=== PATIENT | male | born 1980 | race Caucasian/White ===

== ENCOUNTER 2018-06-25 05:22 | Emergency (ER) | payer OTHER ==
[~2018-06-25] VITALS: Ht 175.3 cm; Wt 77.1 kg
[~2018-06-25 05:22] MED LIST: ERY-TAB250 MG PO; PRILOSEC20 MG PO; ULTRACET TABLET1 TAB PO; ZANTAC 150MG T150 MG PO; ZOFRAN ODT4 MG PO
[2018-06-25 05:43] LABS: BASOPHILS 0.4 % (0.0-2.0); EOSINOPHILS 1.3 % (0.0-3.0); HEMATOCRIT 49.6 % (42.0-52.0); HEMOGLOBIN 16.8 gm/dL (14.0-18.0); LYMPHOCYTES 24.4 % (24.0-44.0); MCHC 33.9 g/dL (28.0-37.0); MCV 88.2 fL (80.0-100.0); MONOCYTES 7.9 % (1.0-8.0); PLATELET COUNT 202 thou/uL (150-400); RBC 5.62 mil/uL (4.50-6.00); RDW 12.8 % (10.5-14.5); WBC 6.1 thou/uL (4.0-11.0)
[2018-06-25 05:48] LABS: CALCIUM 10.1 mg/dL (8.5-10.1); CREATININE 1.1 mg/dL (0.7-1.3); POTASSIUM 3.2 mmol/L (3.5-5.1)
[2018-06-25 05:54] LABS: ALBUMIN 4.6 g/dL (3.4-5.0); TOTAL PROTEIN 8.1 g/dL (6.4-8.2)
[2018-06-25 08:19] LABS: URINE BILIRUBIN NEGATIVE (Negative); URINE BLOOD NEGATIVE (Negative); URINE CLARITY CLEAR; URINE COLOR YELLOW; URINE GLUCOSE-RANDOM* NEGATIVE (Negative); URINE KETONES TRACE (Negative); URINE LEUKOCYTES-REFLEX NEGATIVE (Negative); URINE NITRITE-REFLEX NEGATIVE (Negative); URINE PROTEIN (DIPSTICK) NEGATIVE (Negative); URINE SPECIFIC GRAVITY 1.025 (1.005-1.035); URINE UROBILINOGEN 0.2 E.U./dl (0.2-1.0)
[2018-06-25] MEDS ORDERED: BENTYL 20 MG TA20 M1 PO (09:03)
[2018-06-25 09:18] VITALS: BP 130/85
== END 2018-06-25 09:19 | disposition home or self-care (01) ==
LOC: ER 05:22
PROVIDERS: Emergency Medicine; Student in an Organized Health Care Education/Training Program
DX: R10.30 Lower abdominal pain, unspecified (principal); Z88.8 Allergy status to other drugs, medicaments and biological substances; Z88.0 Allergy status to penicillin